=== PATIENT | male | born 1980 | race Caucasian/White ===

== ENCOUNTER 2024-07-15 07:00 | Outpatient (CLI) | payer OTHER, SELFPAY ==
--- NOTE | ~2024-07-15 | MR_ITS ---
MRI of the lumbar spine Clinical History: Back pain Technique: Axial T2-weighted images, and sagittal T1-weighted, T2-weighted, and T2 fat-sat images wer e acquired. Findings: There is no fracture or subluxation of the lumbar spine. Vertebral bodies maintain normal h eight and alignment. There are mild reactive marrow signal changes about the L4-L5 disc space due to underlying degenerative disc disease. No suspicious marrow signal abnormality seen. At L1-L2 and L2-L3, intervertebral discs maintain normal signal and position. No disc bulge or hernia tion results. No spinal canal stenosis or neural foraminal narrowing at these levels. At L3-L4, there is minimal disc desiccation. There is minimal disc bulge with mild facet arthropathy. No central canal stenosis or neural foraminal narrowing. At L4-L5, there is moderate degenerative disc narrowing with mild disc bulge. There is minimal facet arthropathy. No central canal stenosis. There is minimal right neural foraminal narrowing. Left neura l foramen preserved. At L5-S1, there is mild to moderate degenerative disc narrowing with minimal disc bulge. There is min imal facet arthropathy. No central canal stenosis. There is minimal left neural foraminal narrowing. Right neural foramen preserved. Paravertebral soft tissues are unremarkable. Impression: Minimal degenerative spondylosis, as above. Reviewed, dictated and finalized at [facility]. Impression: Minimal degenerative spondylosis, as above.
== END 2024-07-15 07:01 | disposition home or self-care (01) ==
LOC: MICIMG 07:01
PROVIDERS: PCP Family Medicine; Visit Provider Family Medicine
DX: M54.50 Low back pain, unspecified (principal)
CPT/HCPCS: 72148